=== PATIENT | female | born 1990 | race African-American/Black ===

== ENCOUNTER 2018-03-20 13:19 | Emergency (ER) | payer MEDICAID ==
[~2018-03-20] VITALS: Ht 182.9 cm; Wt 75.0 kg
[2018-03-20 13:27] VITALS: BP 137/64
== END 2018-03-20 17:09 | disposition home or self-care (01) ==
LOC: ER 14:25
DX: K04.7 Periapical abscess without sinus (principal); Z88.6 Allergy status to analgesic agent
CPT/HCPCS: 99283

== ENCOUNTER 2022-10-20 08:31 | Emergency (ER) | payer MEDICAID ==
[~2022-10-20] VITALS: Ht 175.3 cm; Wt 91.0 kg
[2022-10-20 08:34] VITALS: BP 135/67; TEMP 98.4
[2022-10-20] MEDS ORDERED: IBUPROFEN 600MG TABLET PO STA (08:46)
[2022-10-20 09:27] LABS: BASOPHILS % 0.2 % (0.0-2.0); EOSINOPHILS % 2.9 % (0.0-5.0); HEMATOCRIT. 41.6 % (36.0-48.0); HEMOGLOBIN. 14.1 g/dL (12.0-16.0); LYMPHOCYTES % 30.5 % (20.0-50.0); MEAN CORPUSCULAR HEMOGLOBIN 32.9 pg (28.0-32.0); MEAN CORPUSCULAR VOLUME 97.4 fL (81.0-99.0); MEAN PLATELET VOLUME 7.3 fl (7.4-10.4); MONOCYTES % 7.8 % (2.0-8.0); NEUTROPHILS % 58.6 % (40.0-76.0); PLATELET 275 x1000/uL (130-400); RED BLOOD CELL COUNT 4.27 mill/uL (4.2-5.4); RED CELL DISTRIBUTION WIDTH 13.3 % (11.6-14.6)
[2022-10-20 09:57] LABS: CHLORIDE 109 mEq/L (98-107)
[2022-10-20 10:04] LABS: ETHANOL BLOOD 50 mg/dL (-10)
[2022-10-20 10:08] LABS: HCG SCREEN NEGATIVE
[2022-10-20] MEDS ORDERED: ALBUTEROL (0.083%) 2.5MG/3ML NEB HHN STA (10:46)
[2022-10-20] MEDS ORDERED: ALBU6.7H3 INH (10:53)
[2022-10-20] MEDS ORDERED: IBUPROFEN 600MG TABLET PO NR (10:57)
[2022-10-20 11:00] VITALS: PULSE 98; RESP 16; O2SAT 97
== END 2022-10-20 11:30 | disposition home or self-care (01) ==
LOC: ER 08:31
DX: R00.2 Palpitations (principal); Z85.9 Personal history of malignant neoplasm, unspecified
CPT/HCPCS: 80053; 80320; 84703; 85025; 36415; 94640; 93005; 99284; Z7610 ×3; G0480

== ENCOUNTER 2025-01-19 14:17 | Emergency (ER) | payer MEDICAID ==
[~2025-01-19] VITALS: Ht 182.9 cm; Wt 88.0 kg
[~2025-01-19 14:17] MED LIST: ALBU6.7H3 INH
[2025-01-19 14:21] VITALS: O2SAT 98
[2025-01-19 16:21] LABS: BASOPHILS % 0.4 % (0.0-2.0); EOSINOPHILS % 1.5 % (0.0-5.0); HEMATOCRIT. 38.1 % (36.0-48.0); HEMOGLOBIN. 12.6 g/dL (12.0-16.0); LYMPHOCYTES % 19.5 % (20.0-50.0); MEAN PLATELET VOLUME 6.9 fl (7.4-10.4); MONOCYTES % 4.8 % (2.0-8.0); NEUTROPHILS % 73.8 % (40.0-76.0); PLATELET 298 x1000/uL (130-400); RED BLOOD CELL COUNT 3.89 mill/uL (4.2-5.4); RED CELL DISTRIBUTION WIDTH 13.7 % (11.6-14.6)
[2025-01-19 16:38] LABS: CREATININE 0.7 mg/dL (0.6-1.0); UREA NITROGEN BLOOD 5 mg/dL (9-23)
[2025-01-19 16:39] LABS: TROPONIN I HIGH SENSITIVITY < 4 ng/L (3.0-34)
[2025-01-19 16:40] LABS: HCG SCREEN NEGATIVE
[2025-01-19 16:55] LABS: CLARITY URINE CLEAR (CLEAR); COLOR URINE ORANGE (YELLOW); GLUCOSE URINE NEGATIVE (NEGATIVE); KETONES URINE NEGATIVE (NEGATIVE); LEUKOCYTE ESTERASE URINE 1+ (NEGATIVE); NITRITE URINE POSITIVE (NEGATIVE); OCCULT BLOOD URINE NEGATIVE (NEGATIVE); PH URINE 5.5 (4.5-8.0); PROTEIN URINE TRACE (NEGATIVE); SPECIFIC GRAVITY URINE 1.018 (1.005-1.030); UROBILINOGEN URINE 1.0 E.U./dL (0.2-1.0)
[2025-01-19 17:23] VITALS: BP 136/76; PULSE 88; RESP 18; TEMP 36.8; O2SAT 100
[2025-01-19 17:24] LABS: RBC URINE 0-2 /hpf (0-2)
[2025-01-19 17:25] LABS: BACTERIA URINE TRACE; SQUAMOUS EPITHELIAL CELL URINE 1+ /lpf (RARE/1+)
== END 2025-01-19 17:24 | disposition home or self-care (01) ==
LOC: ER 14:17
DX: R07.89 Other chest pain (principal); N39.0 Urinary tract infection, site not specified; E11.9 Type 2 diabetes mellitus without complications; I11.0 Hypertensive heart disease with heart failure; I50.9 Heart failure, unspecified; Z59.00 Homelessness unspecified; Z88.5 Allergy status to narcotic agent
CPT/HCPCS: 36415; 71045; 80048; 81003; 81025; 84484; 84703; 85025; 99285